=== PATIENT | male | born 1995 | race Caucasian/White ===

== ENCOUNTER 2024-03-03 14:57 | Emergency (ER) | payer SELFPAY ==
--- NOTE | 2024-03-03 14:59 | ED.GENMED ---
History of Present Illness
General
Chief Complaint: Skin Surface Trauma
Source: patient
Exam Limitations: none
Time Seen by Provider: 03/03/24 14:59
Nursing documentation reviewed up to this point in time: agreed with
History of Present Illness
History of Present Illness:
Patient presents to ED for an evaluation secondary to right forearm laceration/abrasion, shortly prior to arrival. 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 In the process, patient was scratched on
his right forearm by patient's fingernail. No other injuries reported. Patient unsure of his last tetanus vaccination.
Past History
Past History
ED Past Medical History: None
Social History
Tobacco: Non-smoker
Personal:
Review of Systems
Review of Systems
Allergies reviewed?: Yes
All Other Systems: ROS reviewed and negative except as documented in HPI and ROS
Constitutional: Reports no symptoms
Musculoskeletal: Reports no symptoms
Skin: Reports other (forearm laceration)
Neurological: Reports no symptoms; Denies headache or weakness
Phy Exam
Physical Exam
Physical Exam:
Physical Exam
General: no apparent distress, not acutely ill. afebrile
Head: nc/at. eomi
Neck: supple. normal range of motion
Neuro: alert and oriented. no focal neurological deficits
Skin: superficial laceration noted over right forearm, without bleeding
Psychiatric: well kept. interactive and cooperative
Extremities: no edema. no calf tenderness
Course
Orders/Labs/Results
Orders:
Orders
03/03/24 14:59
Tetanus/Diphth/Acelpertussis [Adacel] 0.5 ml IM .ONCE ONE
Vital Signs
Initial and Last Documented VS:
Initial Vital Signs
Temp Pulse Resp BP Pulse Ox
98.0 F 74 16 122/78 98
03/03/24 15:07 03/03/24 15:07 03/03/24 15:07 03/03/24 15:07 03/03/24 15:07
Last Documented Vital Signs
Temp Pulse Resp BP Pulse Ox
98.0 F 74 16 122/78 98
03/03/24 15:07 03/03/24 15:07 03/03/24 15:07 03/03/24 15:07 03/03/24 15:07
MDM/Problems Addressed
MDM/Problems Addressed:
No indication for suture placement. Tetanus updated. Pt will f/u occupational health for re-evaluation.
*Critical Care Note
Total Time (30-74mins, 75-104mins- exclusive of procedures): Not Applicable
ED Attending Note
-
Portions of this chart may have been created with voice recognition software.� Occasional wrong word or��sound alike� substitutions may have occurred due to the inherent limitations of voice recognition software.
Discharge Plan
Departure
Patient Disposition: Home (Routine Discharge)
Date of Disposition: 03/03/24
Time of Disposition: 15:04
Patient with high blood pressure during this ER visit?: No
Discharge Problem:
Forearm laceration
Instructions: Wound Care ED, Laceration
Activity Restrictions/Additional Instructions:
As discussed, please follow-up with occupational health for reevaluation next week.
Interventions
Interventions:
*Risk Screen - Suicide Last Done: 03/03/24 15:34
*General Assessment Last Done: 03/03/24 15:07
*Neglect/Abuse Screening Last Done: 03/03/24 15:07
ED- Fall Risk Assessment Last Done: 03/03/24 15:34
*ED COVID-19 Vaccine History Last Done: 03/03/24 15:07
*Nursing Disposition Last Done: 03/03/24 15:34
ED-Skin Assessment Last Done: 03/03/24 15:35
Discharge Date and Time
Discharge Date/Time: 03/03/24 15:35
Print Language: [id number]
[2024-03-03 15:07] VITALS: BP 122/78
[2024-03-03] MEDS: ADACEL 0.5 ML IM (15:14)
== END 2024-03-03 15:35 | disposition home or self-care (01) ==
LOC: EMR 14:57
PROVIDERS: EMERGENCY PHYSICIAN Emergency Medicine; FAMILY PHYSICIAN Family Medicine
DX: S51.811A Laceration without foreign body of right forearm, initial encounter (principal); W50.4XXA Accidental scratch by another person, initial encounter; Y93.89 Activity, other specified; Y92.89 Other specified places as the place of occurrence of the external cause; Y99.0 Civilian activity done for income or pay; Z23 Encounter for immunization
CPT/HCPCS: 99282; 90471; 90715